=== PATIENT | female | born 1930 | race Caucasian/White ===

== ENCOUNTER 2022-02-03 21:21 | Emergency (ER) | payer MEDICARE, OTHER ==
[2022-02-03 21:42] VITALS: PULSE 80; TEMP 98.2
[2022-02-03 21:42] LABS: COLLECTION METHOD IN
[2022-02-03 21:48] LABS: BASO # 0.1 K/mm3 (0.0-0.2); BASO % 0.9 % (0.0-2.0); EOS # 0.7 K/mm3 (0.0-0.7); EOS % 8.5 % (0.0-4.0); GRAN # 3.9 K/mm3 (1.4-6.5); GRAN % 50.9 % (42.2-75.2); HEMATOCRIT 40.2 % (37.0-47.0); HEMOGLOBIN 12.9 g/dl (12.5-16.0); LYMPH # 2.1 K/mm3 (1.2-3.4); LYMPH % 27.4 % (20.0-51.0); MEAN CELL VOLUME 90 fl (80.0-100.0); MEAN CORPUSCULAR HEMOGLOBIN 29 pg (27-31); MEAN CORPUSCULAR HGB CONC 32 g/dl (33.0-37.0); MEAN PLATELET VOLUME 10.7 fl (7.4-10.4); MONO # 0.9 K/mm3 (0.1-0.6); MONO % 11.9 % (1.7-9.3); PLATELET COUNT 290 K/mm3 (130-400); RED BLOOD COUNT 4.49 M/mm3 (4.10-5.30); REDCELL DISTRIBUTION WIDTH-CV 15.9 % (11.5-14.5)
[2022-02-03 21:50] LABS: PH 7 (5-8); SQUAMOUS EPITHELIAL None Seen /hpf (0-10); URINE APPEARANCE Clear (CLEAR/HAZY); URINE BACTERIA None Seen /hpf (NONE SEEN); URINE BILIRUBIN Negative (NEGATIVE); URINE BLOOD 1+ (NEGATIVE); URINE COLOR Straw (YELLOW); URINE GLUCOSE Negative (NEGATIVE); URINE KETONE Negative (NEGATIVE); URINE LEUKOCYTE ESTERASE Negative (NEGATIVE); URINE NITRATE Negative (NEGATIVE); URINE PROTEIN(semi-quant) Negative (NEGATIVE); URINE RBC 0-2 /hpf (0-2); URINE UROBILINOGEN Negative (NEGATIVE)
[2022-02-03 21:54] LABS: INR 3.6 (0.8-3.0); PROTHROMBIN TIME 41.8 SECONDS (9.7-12.8)
[2022-02-03 21:56] LABS: PARTIAL THROMBOPLASTIN TIME 41.2 SECONDS (26.0-37.0)
[2022-02-03 22:03] LABS: ALBUMIN 3.2 gm/dL (3.4-4.8); BILIRUBIN,TOTAL 0.3 mg/dL (0.2-1.2); C-REACTIVE PROTEIN 1.19 mg/dL (0.00-0.50); CALCIUM 9.3 mg/dL (8.4-10.2); CREATININE, serum 1.03 mg/dL (0.57-1.11); POTASSIUM 4.6 mmol/L (3.5-4.5); TOTAL PROTEIN 7.5 gm/dL (6.2-8.1)
[2022-02-03] MEDS ORDERED: CARDIZEM CD 24240 MG PO (22:13)
[2022-02-03] MEDS ORDERED: ZETIA 10MG TAB10 MG PO (22:13)
[2022-02-03] MEDS ORDERED: TIROSINT150 MC1 PO (22:14)
[2022-02-03] MEDS ORDERED: LASIX 40MG TABL40 MG PO (22:14)
[2022-02-03] MEDS ORDERED: MAG-OX 400400 MG/TAB PO (22:15)
[2022-02-03] MEDS ORDERED: MIRALAX PA17 GM/Dose PO (22:16)
[2022-02-03] MEDS ORDERED: MASON NATURAL S1 CAP (22:16)
[2022-02-03] MEDS ORDERED: MIRALAX119G PO (22:16)
[2022-02-03] MEDS ORDERED: COUMADIN 5MG5 MG/TAB PO (22:17)
[2022-02-03] MEDS ORDERED: K-TAB20 PO (22:17)
[2022-02-03] MEDS ORDERED: RESTASIS MULTI5.5 ML OP (22:19)
[2022-02-03] MEDS ORDERED: EPA FISH OIL1 SGL PO (22:19)
[2022-02-03] MEDS ORDERED: TYLENOL 8 HR PO (22:20)
[2022-02-04 00:36] VITALS: BP 122/44
== END 2022-02-04 00:37 | disposition short-term general hospital (02) ==
LOC: COL.ER 21:21
PROVIDERS: Emergency Medicine
DX: M97.12XA Periprosthetic fracture around internal prosthetic left knee joint, initial encounter (principal); Z28.310 Unvaccinated for COVID-19; Z96.652 Presence of left artificial knee joint; W19.XXXA Unspecified fall, initial encounter; Y92.129 Unspecified place in nursing home as the place of occurrence of the external cause
CPT/HCPCS: J2270; J2405; L1830; L1846